=== PATIENT | female | born 1935 | race Caucasian/White ===

== ENCOUNTER 2022-05-11 11:39 | Emergency (ER) | payer MEDICARE, SELFPAY ==
--- NOTE | ~2022-05-11 | XR_ITS ---
EXAMINATION: XR wrist RT min 3V DATE: 05/11/2022 12:12 INDICATION: Right wrist injury and pain. TECHNIQUE: 4 views of right wrist were obtained. COMPARISON: None. FINDINGS: Bone alignment is normal. No fracture. 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 IMPRESSION: 1. Polyarticular osteoarthritis. Reviewed, dictated and finalized at location B.
--- NOTE | 2022-05-11 11:40 | ED.UPPEXIN ---
HPI - Extremity Injury (Upper) General Chief Complaint: Extremity Injury, Upper Stated Complaint: Fall Injury/Right Wrist Time Seen by Provider: 05/11/22 12:27 Source: patient and RN notes reviewed Mode of arrival: ambulatory Limitations: no limitations History of Present Illness HPI narrative: 87-year-old female presents with concern for right wrist injury. Reports she rolled out of bed this morning and injured her right wrist. She reports immediate swelling and bruising. She denies decreased sensation, strength, range of motion in the hand or wrist. Reports medial wrist tenderness. Reports she used a brace MD complaint: injury to: right and wrist Related Data Home Medications Medication Instructions Recorded Confirmed atorvastatin 10 mg tablet 10 mg PO DAILY 05/11/22 05/11/22 donepezil 10 mg tablet 10 mg PO HS 05/11/22 05/11/22 furosemide 20 mg tablet 10 mg PO DAILY 05/11/22 05/11/22 hydrocodone 5 mg-acetaminophen 325 1 tablet PO BID 05/11/22 05/11/22 mg tablet levothyroxine 88 mcg tablet 88 mcg PO DAILY 05/11/22 05/11/22 (Synthroid) lisinopril 20 mg tablet 20 mg PO DAILY 05/11/22 05/11/22 paroxetine HCl 20 mg tablet (Paxil) 20 mg PO QAM 05/11/22 05/11/22 tizanidine 2 mg capsule 2 mg PO TID PRN Back Pain 05/11/22 05/11/22 Allergies Allergy/AdvReac Type Severity Reaction Status Date / Time Sulfa (Sulfonamide Allergy Hives Verified 05/11/22 12:00 Antibiotics) Review of Systems Review of Systems: CONSTITUTIONAL: Denies malaise, chills, sweats, or fever. CARDIOVASCULAR: Denies chest pain, palpitations, or edema. RESPIRATORY: Denies cough or dyspnea. SKIN: Denies rash or itching, redness, MUSCULOSKELETAL: Reports right wrist pain, swelling, bruising NEUROLOGIC: Denies numbness, weakness All systems reviewed & are unremarkable except as noted in HPI and below PMFSH Comments At time of signature, agree with nursing past medical, surgical, social and family history. There is no relevant family history pertinent to the presenting complaint Exam Narrative: GENERAL: Well-appearing, well-nourished, and in no acute distress. HEAD: Normocephalic, atraumatic. EYES: PERRLA, conjunctivae clear NECK: Supple. CHEST: Speaks in full sentences. No respiratory distress. HEART: Regular rate and rhythm. Normal and equal peripheral pulses. EXTREMITIES: Right wrist, hand, digits have normal strength and sensation, grossly normal range of motion. Ecchymosis and hematoma noted to the radial aspect of the wrist. 5/5 strength with digit flexion and extension. Normal sensation with sensitivity to light touch and pain. Radial tenderness. No open wounds, no skin tenting, no devitalized tissue or atrophy, no trophic changes, no obvious deformity, alignment normal, nearby joints and structures intact. Distal pulses palpable and equal bilaterally, skin warm, dry, pink. Capillary refill less than 3 seconds. SKIN: Warm, dry, no rash. NEURO: Alert and oriented x3. PSYCH: Normal mood and affect Course Course Emergency Course: Patient is aware of diagnosis, understands and agrees to treatment plan. Anticipatory guidance given. Patient agrees to follow-up as directed and is aware of reasons to seek care at the emergency department. Portions of this record may have been created with voice recognition software Level of Care: Express Care Visit Vital Signs Vital signs: Reviewed. MDM - Extremity Injury (Upper) MDM Narrative Medical decision making narrative: Patients injury and pain is consistent with musculoskeletal etiology. No signs of neurological or vascular compromise on exam. Compartments and tissues are soft without signs of compartment syndrome. Pain is felt appropriate for further evaluation on an outpatient basis. Imaging Data My impression: Images reviewed, interpreted by radiologist, agree, see report. Radiologist's impression: EXAMINATION: XR wrist RT min 3V DATE: 05/11/2022 12:12 INDICATION: Right wrist injur
[2022-05-11 11:46] VITALS: BP 141/53; PULSE 53; RESP 16; TEMP 37.1; O2SAT 100
[2022-05-11 12:04] VITALS: BP 141/53; PULSE 53; RESP 16; TEMP 37.1; O2SAT 100
== END 2022-05-11 12:38 | disposition home or self-care (01) ==
PROVIDERS: Emergency Provider Nurse Practitioner
DX: S60.211A Contusion of right wrist, initial encounter (principal); W06.XXXA Fall from bed, initial encounter; G30.9 Alzheimer's disease, unspecified; F02.80 Dementia in other diseases classified elsewhere, unspecified severity, without behavioral disturbance, psychotic disturbance, mood disturbance, and anxiety; E78.00 Pure hypercholesterolemia, unspecified; I10 Essential (primary) hypertension; E03.9 Hypothyroidism, unspecified; Z85.3 Personal history of malignant neoplasm of breast; F41.9 Anxiety disorder, unspecified; F32.A Depression, unspecified
CPT/HCPCS: 73110; 99213; G0463